=== PATIENT | female | born 1970 | race Caucasian/White ===

== ENCOUNTER 2022-10-03 07:35 | Emergency (ER) | payer OTHER, SELFPAY ==
[2022-10-03] VITALS (15 sets, daily range): BP systolic 128–151; BP diastolic 76–92; PULSE 61–68; RESP 18; TEMP 36.8; O2SAT 94–100
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
[2022-10-03 08:31] LABS: Basophils Absolute Auto 0.03 K/uL (0.00-0.30); Basophils Percent Auto 0.3 % (0.0-3.0); Eosinophils Absolute Auto 0.06 K/uL (0.00-0.50); Eosinophils Percent Auto 0.7 % (0.0-7.0); Hematocrit 48.3 % (33.0-51.0); Immature Granulocytes Abs Auto 0.08 K/uL (0.00-0.30); Immature Granulocytes Pct Auto 0.9 %; Lymphocytes Absolute Auto 1.99 K/uL (0.90-2.90); Lymphocytes Percent Auto 22.8 % (20-44); Mean Corpuscular HGB Conc 33 gm/dL (32-36); Mean Corpuscular Hemoglobin 29 pg (26-34); Mean Corpuscular Volume 89 fL (80-100); Monocytes Percent Auto 4.8 % (0.0-11.0); Neutrophils Absolute Auto 6.15 K/uL (1.7-7.0); Neutrophils Percent Auto 70.5 % (42.0-72.0); Platelet Count* 300 K/uL (140-440); RDW Coefficient of Variation % 12.3 % (11.5-15.5); Red Blood Count 5.45 m/uL (4.00-5.20); White Blood Count* 8.73 K/uL (4.50-11.00)
[2022-10-03 08:35] LABS: Slide Review Reflex No
[2022-10-03] MEDS: ACETAMINOPHEN 500 MG TABLET 1000 MG PO (08:49)
[2022-10-03 08:50] LABS: Chloride* 100 mmol/L (96-114); Sodium* 141 mmol/L (135-149)
[2022-10-03 08:53] LABS: Carbon Dioxide* 33 mmol/L (20-32)
[2022-10-03 08:54] LABS: Blood Urea Nitrogen* 17 mg/dL (7-30); Calcium* 9.9 mg/dL (8.4-10.6); Glucose* 118 mg/dL (60-115)
[2022-10-03 08:55] LABS: Ethanol* < 0.01 % (0.01-0.03)
[2022-10-03 09:06] LABS: Creatinine* 0.9 mg/dL (0.5-1.5); Estimated Glomerular Filt Rate 77 ml/min
== END 2022-10-03 09:48 | disposition home or self-care (01) ==
PROVIDERS: Emergency Provider Family Medicine
DX: S20.219A Contusion of unspecified front wall of thorax, initial encounter (principal); S13.4XXA Sprain of ligaments of cervical spine, initial encounter; V43.62XA Car passenger injured in collision with other type car in traffic accident, initial encounter
CPT/HCPCS: 36415; 71260; 72125; 80048; 82077; 85025; 94761; 99284; 99291; A9270; Q9967